=== PATIENT | male | born 1985 | race Two or more races ===

== ENCOUNTER 2023-07-08 19:09 | Emergency (ER) | payer OTHER ==
[~2023-07-08] VITALS: Ht 175.3 cm; Wt 91.2 kg
[~2023-07-08 19:09] MED LIST: KETO10TA2 PO; MEDROLPACK PO; ORPH100T PO
== END 2023-07-08 22:42 | disposition home or self-care (01) ==
LOC: ER 19:09
DX: S93.492A Sprain of other ligament of left ankle, initial encounter (principal); S82.899A Other fracture of unspecified lower leg, initial encounter for closed fracture; X58.XXXA Exposure to other specified factors, initial encounter; Y93.67 Activity, basketball; Y92.89 Other specified places as the place of occurrence of the external cause; Y99.8 Other external cause status; M79.672 Pain in left foot; M25.572 Pain in left ankle and joints of left foot; M79.89 Other specified soft tissue disorders

== ENCOUNTER 2023-07-27 12:43 | Emergency (ER) | payer OTHER ==
[~2023-07-27] VITALS: Ht 175.3 cm; Wt 91.2 kg
== END 2023-07-27 19:49 | disposition home or self-care (01) ==
LOC: ER 12:43
DX: M76.61 Achilles tendinitis, right leg (principal)

== ENCOUNTER 2025-05-10 20:36 | Emergency (ER) | payer OTHER ==
[~2025-05-10] VITALS: Ht 175.3 cm; Wt 92.5 kg
[2025-05-10] MEDS ORDERED: ORPHENADRINE CITRATE 100 MG TABLET PO ONE (23:45)
[2025-05-10] MEDS ORDERED: DEXAMETHASONE SODIUM PHOSPHATE 4 MG/ML VIAL IM ONE (23:45)
[2025-05-10] MEDS ORDERED: KETOROLAC TROMETHAMINE 30 MG VIAL IM ONE (23:45)
[2025-05-10] MEDS ORDERED: KETOROLAC TROMETHAMINE 30 MG VIAL ONE (23:54)
[2025-05-10] MEDS ORDERED: DEXAMETHASONE SODIUM PHOSPHATE 4 MG/ML VIAL ONE (23:55)
== END 2025-05-11 00:08 | disposition home or self-care (01) ==
LOC: ER 20:36
DX: M62.838 Other muscle spasm (principal)